=== PATIENT | male | born 1960 | race Caucasian/White ===

== ENCOUNTER 2024-01-04 10:15 | Outpatient (CLI) | payer BC | END 2024-01-04 10:16 | disposition home or self-care (01) | LOC: CSHULT 10:15 | PROVIDERS: ATTEND Family Medicine | DX: R16.0 Hepatomegaly, not elsewhere classified (principal) | CPT/HCPCS: 76700 ==

== ENCOUNTER 2025-02-28 11:26 | Emergency (ER) | payer MEDICARE ==
[2025-02-28] MEDS ORDERED: Lidocaine 1% (PF) 30 ML VIAL ONE (12:39)
[2025-02-28] MEDS ORDERED: Bacitracin 1 PK ONE (12:43)
== END 2025-02-28 13:30 | disposition home or self-care (01) ==
LOC: CSHERS 11:26
DX: S61.012A Laceration without foreign body of left thumb without damage to nail, initial encounter (principal); B20 Human immunodeficiency virus [HIV] disease; Z23 Encounter for immunization; W18.2XXA Fall in (into) shower or empty bathtub, initial encounter; Y93.E1 Activity, personal bathing and showering
CPT/HCPCS: 12001; 90471; 90715; J2003